=== PATIENT | male | born 1975 | race Caucasian/White ===

== ENCOUNTER 2016-07-26 07:20 | Emergency (ER) | payer MEDICAID ==
--- NOTE | 2016-07-26 08:07 | ER Document Report ---
ED Extremity Problem, Upper - General Chief Complaint: Elbow Injury Stated Complaint: ELBOW PAIN Time seen by provider: 08:07 Mode of Arrival: Ambulatory Information source: Patient TRAVEL OUTSIDE OF THE [place] IN LAST 30 DAYS: No - HPI Notes: Patient presents with report of bilateral elbow pain that he's had progressively over the last few weeks. 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 He is right hand dominant and reports the pain is through the medial epicondyle region of the right elbow and the lateral epicondyle region of the left elbow corresponding to the ways holding the patient scraper. He denies any numbness, paresthesia, fever, gout history, single episode of trauma. - Related Data Allergies/Adverse Reactions: hydromorphone HCl [From Dilaudid] Allergy (Severe, Verified 07/26/16 07:31) Sulfa (Sulfonamide Antibiotics) Allergy (Verified 07/26/16 07:31) Past Medical History - Social History Smoking Status: Unknown if Ever Smoked Chew tobacco use (# tins/day): No Frequency of alcohol use: None Drug Abuse: None Family History: Malignancy Patient has suicidal ideation: No Patient has homicidal ideation: No Pulmonary Medical History: Denies: Hx Tuberculosis Renal/ Medical History: Denies: Hx Peritoneal Dialysis Traumatic Medical History: Reports: Hx Pneumothorax - Right side 2 Surgical Hx: Negative Past Surgical History: Reports: Other - Chest tube 2 - Immunizations Hx Diphtheria, Pertussis, Tetanus Vaccination: Yes Review of Systems - Review of Systems Notes: REVIEW OF SYSTEMS: CONSTITUTIONAL : Denies fever, chills, or sweats. Denies recent illness. EENT: Denies eye, ear, throat, or mouth pain or symptoms. Denies nasal or sinus congestion or discharge. Denies throat, tongue, or mouth swelling or difficulty swallowing. CARDIOVASCULAR: Denies chest pain. Denies palpitations or racing or irregular heart beat. Denies ankle edema. RESPIRATORY: Denies cough, cold, or chest congestion. Denies shortness of breath, difficulty breathing, or wheezing. GASTROINTESTINAL: Denies abdominal pain or distention. Denies nausea, vomiting , or diarrhea. Denies blood in vomitus, stools, or per rectum. Denies black, tarry stools. Denies constipation. GENITOURINARY: Denies difficulty urinating, painful urination, burning, frequency, blood in urine, or discharge. MUSCULOSKELETAL: Denies back or neck pain or stiffness. Isolated pain through both elbows. SKIN: Denies rash, lesions or sores. HEMATOLOGIC : Denies easy bruising or bleeding. LYMPHATIC: Denies swollen, enlarged glands. NEUROLOGICAL: Denies confusion or altered mental status. Denies passing out or loss of consciousness. Denies dizziness or lightheadedness. Denies headache. Denies weakness or paralysis or loss of use of either side. Denies problems with gait or speech. Denies sensory loss, numbness, or tingling. Denies seizures. PSYCHIATRIC: Denies anxiety or stress. Denies depression, suicidal ideation, or homicidal ideation. ALL OTHER SYSTEMS REVIEWED AND NEGATIVE. Dictation was performed using [employer] voice recognition software -: Yes All other systems reviewed and negative Physical Exam - Vital signs Vitals: Temp Pulse Resp BP Pulse Ox 98.6 F 77 14 123/82 97 07/26/16 07:31 07/26/16 07:31 07/26/16 07:31 07/26/16 07:31 07/26/16 07:31 - Notes Notes: PHYSICAL EXAMINATION: GENERAL: Well-appearing, well-nourished and in no acute distress. HEAD: Atraumatic, normocephalic. EYES: conjunctiva are normal. NECK: Normal range of motion, supple without lymphadenopathy LUNGS: Breath sounds clear to auscultation bilaterally and equal. No wheezes rales or rhonchi. HEART: Regular rate and rhythm without murmurs Musculoskeletal: Normal range of motion, no pitting or edema. No cyanosis. Patient has pain to the right epicondyle of the elbow medially and the left lateral epicondyle. There is no erythema or significant swelling but there is pain on right forearm flexion and left forearm extension through these regions. Distally patient is neurovascularly intact. NEUROLOGICAL: Cranial nerves grossly intact. Normal speech, normal gait. Normal sensory, motor exams PSYCH: Normal mood, normal affect. SKIN: Warm, Dry, normal turgor, no rashes or lesions noted. Course - Re-evaluation Re-evalutation: 07/26/16 08:32 I demonstrated the patient the use of a epicondyle compression strap from both the medial and the lateral epicondyle. I informed him of where to find these and was able to demonstrate with an example used. He stated he would pick this up on his own. No suggestion for gout, neurovascular compromise or suggestion for fracture, obvious stress fracture or DVT. Orthopedic follow-up urged for any continued discomfort. - Vital Signs Vital signs: Temp Pulse Resp BP Pulse Ox 98.6 F 77 16 123/82 97 07/26/16 07:31 07/26/16 07:31 07/26/16 07:39 07/26/16 07:31 07/26/16 07:31 Discharge - Discharge Clinical Impression: Medial epicondylitis of right elbow, Lateral epicondylitis, left elbow Condition: Stable Disposition: HOME, SELF-CARE Instructions: Medial Epicondylitis ([facility]), Tennis Elbow (Lateral Epicondylitis) ([facility]) Additional Instructions: Please follow up with the Orthopedics [facility] [address] [place] [id number] Wear compression brace on both elbows as needed for pain. Prescriptions: Tramadol HCl [Ultram 50 mg Tablet] 50 mg PO Q4HP PRN #20 tablet PRN Reason: Naproxen [Naprosyn 375 Mg Tablet] 375 mg PO BIDP PRN #60 tablet PRN Reason: Forms: Return to Work
[2016-07-26 08:50] VITALS: BP 129/86
== END 2016-07-26 08:50 | disposition home or self-care (01) ==
LOC: ER 07:20
DX: M77.01 Medial epicondylitis, right elbow (principal); M77.12 Lateral epicondylitis, left elbow; Z88.6 Allergy status to analgesic agent; Z88.2 Allergy status to sulfonamides
CPT/HCPCS: 99283

== ENCOUNTER 2016-10-13 10:15 | Emergency (ER) | payer MEDICAID ==
--- NOTE | 2016-10-13 11:00 | ER Document Report ---
HPI - HPI Pain Level: 4 Context: 41 yo male c/o pain to both elbows progressively worsening over several months. pt seen 07/30 for same, diagnosed with tennis elbow. treated with naprosyn and ultram. pt reports pain has increased significantly since starting [email or web address] job. pt is right hand dominant. denies numbness, parethesias, fever, hx of gout, or trauma Associated Symptoms: None Exacerbated by: Movement Relieved by: Denies Similar symptoms previously: Yes Recently seen / treated by doctor: No - ROS Systems Reviewed and Negative: Yes All other systems reviewed and negative - REPRODUCTIVE Reproductive: DENIES: : - DERM Skin Color: Normal Past Medical History - General Information source: Patient - Social History Smoking Status: Current Every Day Smoker Frequency of alcohol use: None Drug Abuse: None Occupation: [employer] Lives with: Family Family History: Malignancy Patient has suicidal ideation: No Patient has homicidal ideation: No Pulmonary Medical History: Denies: Hx Tuberculosis Renal/ Medical History: Denies: Hx Peritoneal Dialysis Traumatic Medical History: Reports: Hx Pneumothorax - Right side 2 Past Surgical History: Reports: Other - Chest tube 2 - Immunizations Hx Diphtheria, Pertussis, Tetanus Vaccination: Yes Vertical Provider Document - CONSTITUTIONAL Agree With Documented VS: Yes Exam Limitations: No Limitations General Appearance: WD/WN - INFECTION CONTROL TRAVEL OUTSIDE OF THE [place] IN LAST 30 DAYS: No - HEENT HEENT: Atraumatic, PERRLA - NECK Neck: Normal Inspection, Supple - RESPIRATORY Respiratory: Breath Sounds Normal, No Respiratory Distress O2 Sat by Pulse Oximetry: 98 - CARDIOVASCULAR Cardiovascular: Regular Rate, Regular Rhythm - MUSCULOSKELETAL/EXTREMETIES Musculoskeletal/Extremeties: Tender - focal tenderness to right and left medial epicondyles. no erythema or swelling. + pain with flexion and extension. distal SMC intact Course - Re-evaluation Re-evalutation: 10/13/16 11:10 H&P c/w epicondylitis. no hx/o trauma, no suspicion for gout or DVT. emphasized to patient that he needs orthopedic follow up. acknowledges understanding. pt stable for discharge - Vital Signs Vital signs: Temp Pulse Resp BP Pulse Ox 97.8 F 60 16 120/82 98 10/13/16 10:19 10/13/16 10:19 10/13/16 10:19 10/13/16 10:19 10/13/16 10:19 Discharge - Discharge Clinical Impression: Tennis elbow syndrome Qualifiers: Laterality: bilateral Qualified Code(s): M77.11 - Lateral epicondylitis, right elbow Condition: Stable Disposition: HOME, SELF-CARE Instructions: Tennis Elbow (Lateral Epicondylitis) ([facility]), Steroid Medication, Ultram ([facility]) Additional Instructions: take meds as prescribed recommend counter traction brace for support and comfort recommend further evaluation and treatment by orthopedics Prescriptions: Prednisone 20 mg PO BID #20 tablet Tramadol HCl [Ultram 50 mg Tablet] 50 mg PO Q4H PRN #20 tablet PRN Reason: Referrals: BARTOLO DANIELS MD [ACTIVE STAFF] - Follow up as needed
[2016-10-13 11:27] VITALS: BP 117/77
== END 2016-10-13 11:27 | disposition home or self-care (01) ==
LOC: ER 10:15
DX: M77.12 Lateral epicondylitis, left elbow (principal); M77.11 Lateral epicondylitis, right elbow; F17.200 Nicotine dependence, unspecified, uncomplicated
CPT/HCPCS: 99283

== ENCOUNTER 2016-11-01 02:16 | Emergency (ER) | payer MEDICAID ==
--- NOTE | 2016-11-01 06:27 | RADIOLOGY REPORT (SQ) ---
EXAM DESCRIPTION: CHEST PA/LAT COMPLETED DATE/TIME: 11/01/2016 6:11 am REASON FOR STUDY: difficulty breathing COMPARISON: 08/02/2014. EXAM PARAMETERS: NUMBER OF VIEWS: two views TECHNIQUE: Digital Frontal and Lateral radiographic views of the chest acquired. RADIATION DOSE: NA LIMITATIONS: none FINDINGS: LUNGS AND PLEURA: No opacities, masses or pneumothorax. No pleural effusion. MEDIASTINUM AND HILAR STRUCTURES: No masses or contour abnormalities. HEART AND VASCULAR STRUCTURES: Heart normal size. No evidence for failure. BONES: No acute findings. HARDWARE: None in the chest. OTHER: No other significant finding. IMPRESSION: NO SIGNIFICANT RADIOGRAPHIC FINDING IN THE CHEST. TECHNICAL DOCUMENTATION: JOB ID: [id number] [employer]- All Rights Reserved
[2016-11-01] MEDS ORDERED: KETOROLAC TROMETHAMINE 60 MG/2 ML SDV IM ONE (06:36)
[2016-11-01] MEDS ORDERED: DIAZEPAM 5 MG TABLET PO ONE (06:36)
--- NOTE | 2016-11-01 07:30 | ER Document Report ---
ED General - General Chief Complaint: Breathing Difficulty Stated Complaint: BACK PAIN,SHORTNESS OF BREATH Time Seen by Provider: 11/01/16 06:12 Mode of Arrival: Ambulatory Information source: Patient Notes: 41-year-old male history of previous pneumothorax x2 secondary to height presents with complaints of midline thoracic back pain. pt notes pain started this morning hurts with movement and palpation. TRAVEL OUTSIDE OF THE [place] IN LAST 30 DAYS: No - HPI Onset: Just prior to arrival Onset/Duration: Persistent Quality of pain: Achy Severity: Mild Pain Level: 1 Associated symptoms: Body/muscle aches Exacerbated by: Movement Relieved by: Denies Similar symptoms previously: Yes Recently seen / treated by doctor: Yes - Related Data Allergies/Adverse Reactions: hydromorphone HCl [From Dilaudid] Allergy (Severe, Verified 11/01/16 05:55) Sulfa (Sulfonamide Antibiotics) Allergy (Verified 11/01/16 05:55) Past Medical History - Social History Smoking Status: Never Smoker Cigarette use (# per day): No Chew tobacco use (# tins/day): No Smoking Education Provided: No Family History: Malignancy Pulmonary Medical History: Denies: Hx Tuberculosis Renal/ Medical History: Denies: Hx Peritoneal Dialysis Traumatic Medical History: Reports: Hx Pneumothorax - Right side 2 Past Surgical History: Reports: Other - Chest tube 2 - Immunizations Hx Diphtheria, Pertussis, Tetanus Vaccination: Yes Review of Systems - Review of Systems Notes: REVIEW OF SYSTEMS: CONSTITUTIONAL : Denies fever, chills, or sweats. Denies recent illness. EENT: Denies eye, ear, throat, or mouth pain or symptoms. Denies nasal or sinus congestion or discharge. Denies throat, tongue, or mouth swelling or difficulty swallowing. CARDIOVASCULAR: Denies chest pain. Denies palpitations or racing or irregular heart beat. Denies ankle edema. RESPIRATORY: Denies cough, cold, or chest congestion. Denies shortness of breath, difficulty breathing, or wheezing. GASTROINTESTINAL: Denies abdominal pain or distention. Denies nausea, vomiting , or diarrhea. Denies blood in vomitus, stools, or per rectum. Denies black, tarry stools. Denies constipation. GENITOURINARY: Denies difficulty urinating, painful urination, burning, frequency, blood in urine, or discharge. MUSCULOSKELETAL: Admits to back pain SKIN: Denies rash, lesions or sores. HEMATOLOGIC : Denies easy bruising or bleeding. LYMPHATIC: Denies swollen, enlarged glands. NEUROLOGICAL: Denies confusion or altered mental status. Denies passing out or loss of consciousness. Denies dizziness or lightheadedness. Denies headache. Denies weakness or paralysis or loss of use of either side. Denies problems with gait or speech. Denies sensory loss, numbness, or tingling. Denies seizures. PSYCHIATRIC: Denies anxiety or stress. Denies depression, suicidal ideation, or homicidal ideation. ALL OTHER SYSTEMS REVIEWED AND NEGATIVE. Dictation was performed using [employer] voice recognition software PHYSICAL EXAMINATION: GENERAL: Well-appearing, well-nourished and in no acute distress. HEAD: Atraumatic, normocephalic. EYES: Pupils equal round and reactive to light, extraocular movements intact, sclera anicteric, conjunctiva are normal. ENT: Nares patent, oropharynx clear without exudates. Moist mucous membranes. NECK: Normal range of motion, supple without lymphadenopathy LUNGS: Breath sounds clear to auscultation bilaterally and equal. No wheezes rales or rhonchi. HEART: Regular rate and rhythm without murmurs ABDOMEN: Soft, nontender, nondistended abdomen. No guarding, no rebound. No masses appreciated. Musculoskeletal: Thoracic T four tenderness on palpation reproducing exact pain NEUROLOGICAL: Cranial nerves grossly intact. Normal speech, normal gait. Normal sensory, motor exams PSYCH: Normal mood, normal affect. SKIN: Warm, Dry, normal turgor, no rashes or lesions noted. Physical Exam - Vital signs Vitals: Temp Pulse Resp BP Pulse Ox 97.9 F 78 18 133/86 H 95 11/01/16 02:26 11/01/16 02:26 11/01/16 02:26 11/01/16 02:26 11/01/16 02:26 Course - Re-evaluation Re-evalutation: 11/01/16 14:14 Initial emergent concern was for another spontaneous pneumothorax, patient notes this feels a little different, a chest x-ray was performed which noted no mediastinal enlargement, it noted no pneumothorax. Patient's pain was exactly reproducible on palpation of his back, he has obvious muscle spasm and will be treated for such After performing a Medical Screening Examination, I estimate there is LOW risk for RUPTURED ESOPHAGUS, PNEUMOTHORAX, PULMONARY EMBOLISM, ACUTE CORONARY SYNDROME, OR THORACIC AORTIC DISSECTION, thus I consider the discharge disposition reasonable. I have reevaluated this patient multiple times and no significant life threatening changes are noted. The patient and I have discussed the diagnosis and risks, and we agree with discharging home with close follow-up. We also discussed returning to the Emergency Department immediately if new or worsening symptoms occur. We have discussed the symptoms which are most concerning (e.g., bloody sputum, worsening pain or shortness of breath) that necessitate immediate return. - Vital Signs Vital signs: Temp Pulse Resp BP Pulse Ox 97.9 F 56 L 12 131/79 H 99 11/01/16 07:43 11/01/16 07:43 11/01/16 05:47 11/01/16 07:43 11/01/16 07:43 - Diagnostic Test Radiology reviewed: Image reviewed, Reports reviewed - No acute abnormality - EKG Interpretation by Me EKG shows normal: Sinus rhythm, [place], Intervals, QRS Complexes Discharge - Discharge Clinical Impression: Muscle spasm Back pain Qualifiers: Back pain location: thoracic back pain Chronicity: acute Back pain laterality: midline Qualified Code(s): M54.6 - Pain in thoracic spine Condition: Stable Disposition: HOME, SELF-CARE Instructions: Muscle Strain ([facility]), Myalagia (Muscle Pain) ([facility]) Additional Instructions: Follow up with your physician tomorrow for further care or return to the ED IMMEDIATELY if symptoms worsen or new concerns occur. If you cannot afford to follow up with your primary care physician a list of low cost clinics have been provided at the end of your discharge papers as well. Prescriptions: Diazepam [Valium 5 mg Tablet] 5 mg PO QIDP PRN #15 tablet PRN Reason: Naproxen 500 mg PO BID #20 tablet
[2016-11-01 07:59] VITALS: BP 131/79
--- NOTE | 2016-11-01 10:23 | EKG REPORT ---
SEVERITY:- ABNORMAL ECG - SINUS BRADYCARDIA ANTERIOR INFARCT, AGE INDETERMINATE VERSUS LEAD PLACEMENT. : Confirmed by: Marika Calderon MD 01-Nov-2016 10:22:05
== END 2016-11-01 07:50 | disposition home or self-care (01) ==
LOC: ER 02:16
DX: M62.830 Muscle spasm of back (principal); R06.02 Shortness of breath; M54.9 Dorsalgia, unspecified; M54.6 Pain in thoracic spine
CPT/HCPCS: 93005; 99285; 96372; 71020; 93010; J3490; J1885

== ENCOUNTER 2017-09-29 09:51 | Emergency (ER) | payer MEDICAID ==
[2017-09-29] MEDS ORDERED: CEPHALEXIN 500 MG CAPSULE PO ONE (10:58)
[2017-09-29 11:03] VITALS: BP 129/80
--- NOTE | 2017-09-29 11:03 | ER Document Report ---
ED Extremity Problem, Lower - General Chief Complaint: Toe Injury Stated Complaint: TOE PAIN Time Seen by Provider: 09/29/17 10:51 Mode of Arrival: Ambulatory Information source: Patient Notes: 42-year-old male presents to ED for complaint of pain to the right great toe for times a week. He states it is red and swollen. He states he has not been to the doctor he has been trying to treat it himself but it is not getting any better. Patient is alert and oriented respirations even and unlabored pupils equal and react to light walks with a even steady gait. He does have some pain when he walks he states. TRAVEL OUTSIDE OF THE [place] IN LAST 30 DAYS: No - HPI Patient complains to provider of: Pain, Swelling Location: Great Toe Onset/Duration: Gradual Quality of pain: Sharp Severity: Moderate Pain Level: 3 Recent injury: No Associated symptoms: Painful ambulation Exacerbated by: Movement, Walking Relieved by: Elevation, Other - Warm - Related Data Allergies/Adverse Reactions: hydromorphone HCl [From Dilaudid] Allergy (Severe, Verified 09/29/17 09:53) Sulfa (Sulfonamide Antibiotics) Allergy (Verified 09/29/17 09:53) Past Medical History - General Information source: Patient - Social History Smoking Status: Former Smoker Cigarette use (# per day): No Chew tobacco use (# tins/day): No Smoking Education Provided: No Frequency of alcohol use: None Drug Abuse: None Lives with: Family Family History: Reviewed & Not Pertinent, DM - mother, Malignancy Patient has suicidal ideation: No Patient has homicidal ideation: No - Past Medical History Cardiac Medical History: Reports: None Pulmonary Medical History: Reports: None EENT Medical History: Reports: None Neurological Medical History: Reports: None Endocrine Medical History: Reports: None Renal/ Medical History: Reports: None Malignancy Medical History: Reports None GI Medical History: Reports: None Musculoskeltal Medical History: Reports None Skin Medical History: Reports None Psychiatric Medical History: Reports: None Traumatic Medical History: Reports: Hx Pneumothorax - Right side 2 Infectious Medical History: Reports: None Past Surgical History: Reports: Other - Chest tube 2, right elbow - Immunizations Immunizations up to date: No Hx Diphtheria, Pertussis, Tetanus Vaccination: No Review of Systems - Review of Systems Constitutional: No symptoms reported EENT: No symptoms reported Cardiovascular: No symptoms reported Respiratory: No symptoms reported Gastrointestinal: No symptoms reported Genitourinary: No symptoms reported Male Genitourinary: No symptoms reported Musculoskeletal: No symptoms reported Skin: Other - Mild inflammation to the right great toe to the medial aspect of the nail Hematologic/Lymphatic: No symptoms reported Neurological/Psychological: No symptoms reported -: Yes All other systems reviewed and negative Physical Exam - Vital signs Vitals: Temp Pulse Resp BP Pulse Ox 98.0 F 80 16 129/80 H 96 09/29/17 10:05 09/29/17 10:05 09/29/17 10:05 09/29/17 10:05 09/29/17 10:05 Interpretation: Normal - General General appearance: Appears well, Alert - HEENT Head: Normocephalic, Atraumatic Eyes: Normal Pupils: PERRL - Respiratory Respiratory status: No respiratory distress Chest status: Nontender Breath sounds: Normal Chest palpation: Normal - Cardiovascular Rhythm: Regular Heart sounds: Normal auscultation Murmur: No - Abdominal Inspection: Normal Distension: No distension Bowel sounds: Normal Tenderness: Nontender Organomegaly: No organomegaly - Back Back: Normal, Nontender - Extremities General upper extremity: Normal inspection, Nontender, Normal color, Normal ROM , Normal temperature General lower extremity: Normal ROM, Normal temperature, Normal weight bearing. No: Christopher's sign Foot: Tender - Right great toe to the medial aspect of the nail, Edema - Right great toe to the medial aspect of the nail, Other - Erythema Right great toe to the medial aspect of the nail - Neurological Neuro grossly intact: Yes Cognition: Normal Orientation: AAOx4 [place] Coma Scale Eye Opening: Spontaneous [place] Coma Scale Verbal: Oriented [place] Coma Scale Motor: Obeys Commands [place] Coma Scale Total: 15 Speech: Normal Motor strength normal: LUE, RUE, LLE, RLE Sensory: Normal - Psychological Associated symptoms: Normal affect, Normal mood - Skin Skin Temperature: Warm Skin Moisture: Dry Skin Color: Normal Irregularity with: Swelling, Tenderness, Warmth - Right great toe to the medial aspect of the nail Course - Re-evaluation Re-evalutation: 09/29/17 11:08 Patient was given Keflex for his right great toe infection to the medial side of the nail. Patient was instructed to use Epson salt soaks for the next 3-4 days and then to follow-up with podiatry on Tuesday he is to call podiatry today to schedule an appointment. Patient verbalized understanding and agreement with treatment plan. - Vital Signs Vital signs: Temp Pulse Resp BP Pulse Ox 98.0 F 80 16 129/80 H 96 09/29/17 10:05 09/29/17 10:05 09/29/17 10:05 09/29/17 10:05 09/29/17 10:05 Discharge - Discharge Clinical Impression: Ingrown toenail of right foot with infection Condition: Stable Disposition: HOME, SELF-CARE Additional Instructions: Ingrown Nail You have an ingrown nail. An ingrown nail develops when the tissues near the nail are pushed up over the nail. Irritation develops and infection follows. An ingrown nail can result from poorly fitting shoes, improper cutting of the nail, or minor injuries. Once the tissues at the edge of the nail swell, the problem can become chronic. Emergency treatment is usually removal of the portion of the nail that has become ingrown. This is followed by hot soaks three to four times a day. Antibiotics may be necessary if infection is present. After the toe heals, make certain there is no pressure on the area, either from shoes or another toe. Trim the toenails straight across, not curved back into the corners. If ingrown nails recur, an operation to remove excess tissue near the nail, or narrowing of the nail, may be necessary. Call the doctor or return if swelling increases, or red streaks, swelling, or swollen glands are found. CEPHALEXIN: The antibiotic you've been prescribed is a member of the cephalosporin class. This type of antibiotic covers a wide variety of infections, including those of the skin, lungs, and urinary tract. It's useful for staph infections. This antibiotic is slightly similar to the penicillin family. In rare cases , a person who is allergic to penicillin will also be allergic to this medication. If you have had a severe allergic reaction to penicillin, and have not taken this antibiotic since that time, notify your doctor. Antibiotics which cover many germs ("broad spectrum" antibiotics) are more likely to cause diarrhea or "yeast" infections. Women prone to vaginal yeast problems may suffer an attack after taking this antibiotic. In infants, oral thrush (white spots "stuck" on the cheek) or yeast diaper rash may result. See your doctor if these problems occur. Call at once if you develop itching, hives , shortness of breath, or lightheadedness. Epsom Salt Soaks Soak the wound area in a container of warm epsom salt water. If you can't get the wound area into a bucket or smith, use a folded towel soaked in the epsom salt solution and apply to the area. Use clean hot tap water (about the temperature of a very warm bath), mixing in about one (1) teaspoon for every pint of water. Two gallon --> 16 teaspoons Epsom Salts One gallon --> 8 teaspoons Epsom Salts Two quarts --> 4 teaspoons Epsom Salts One quart --> 2 teaspoons Epsom Salts Soak the wound for about 20 minutes while gently moving it around in the water. Repeat this four (4) times a day. FOLLOW-UP CARE: If you have been referred to a physician for follow-up care, call the physician s office for an appointment as you were instructed or within the next two days. If you experience worsening or a significant change in your symptoms, notify the physician immediately or return to the Emergency Department at any time for re-evaluation. Prescriptions: Cephalexin Monohydrate [Keflex 500 mg Capsule] 500 mg PO Q6H 5 Days capsule Forms: Elevated Blood Pressure Referrals: JALEESA PALACIO DPM [ACTIVE STAFF] - Follow up as needed
== END 2017-09-29 11:20 | disposition home or self-care (01) ==
LOC: ER 09:51
DX: L60.0 Ingrowing nail (principal); L03.031 Cellulitis of right toe; M79.674 Pain in right toe(s); Z88.5 Allergy status to narcotic agent; Z88.2 Allergy status to sulfonamides; Z87.891 Personal history of nicotine dependence
CPT/HCPCS: 99283

== ENCOUNTER 2017-12-05 22:57 | Emergency (ER) | payer SELFPAY ==
[2017-12-06] MEDS ORDERED: CYCLOBENZAPRINE HCL 10 MG TABLET PO ONE (01:19)
[2017-12-06] MEDS ORDERED: IBUPROFEN 600 MG TABLET PO ONE (01:19)
--- NOTE | 2017-12-06 02:15 | ER Document Report ---
ED Neck/Back Problem - General Mode of Arrival: Ambulatory Information source: Patient TRAVEL OUTSIDE OF THE [place] IN LAST 30 DAYS: No - General Chief Complaint: Low Back Pain Stated Complaint: BACK PAIN Time Seen by Provider: 12/06/17 00:57 Notes: Patient is a 42-year-old male who presents to the ER today for low back pain that began approximately a week ago. 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 He states that it feels like his back "locks up" on him. He denies any numbness or tingling or shooting pains anywhere. Patient does not have a history of chronic back pain. Patient states that he feels "crooked." (MARILY MANNING) - Related Data Allergies/Adverse Reactions: hydromorphone HCl [From Dilaudid] Allergy (Severe, Verified 12/06/17 01:08) Sulfa (Sulfonamide Antibiotics) Allergy (Verified 12/06/17 01:08) Past Medical History - General Information source: Patient - Social History Smoking Status: Unknown if Ever Smoked Family History: Reviewed & Not Pertinent, DM - mother, Malignancy Patient has suicidal ideation: No Patient has homicidal ideation: No Pulmonary Medical History: Denies: Hx Tuberculosis Renal/ Medical History: Denies: Hx Peritoneal Dialysis Psychiatric Medical History: Denies: Hx Depression Traumatic Medical History: Reports: Hx Pneumothorax - Right side 2 Past Surgical History: Reports: Other - Chest tube 2, right elbow - Immunizations Immunizations up to date: No Hx Diphtheria, Pertussis, Tetanus Vaccination: No Review of Systems - Review of Systems Constitutional: No symptoms reported EENT: No symptoms reported Cardiovascular: No symptoms reported Respiratory: No symptoms reported Gastrointestinal: No symptoms reported Genitourinary: No symptoms reported Male Genitourinary: No symptoms reported Musculoskeletal: See HPI Skin: No symptoms reported Hematologic/Lymphatic: No symptoms reported Neurological/Psychological: No symptoms reported Physical Exam - Vital signs Vitals: Temp Pulse Resp BP Pulse Ox 99.2 F 77 16 124/76 96 12/05/17 23:47 12/05/17 23:47 12/05/17 23:47 12/05/17 23:47 12/05/17 23:47 - Notes Notes: PHYSICAL EXAMINATION: GENERAL: Uncomfortable ll-appearing and in no acute distress. HEAD: Atraumatic, normocephalic. EYES: Pupils equal round and reactive to light, extraocular movements intact, sclera anicteric, conjunctiva are normal. NECK: Normal range of motion, supple without lymphadenopathy LUNGS: CTAB and equal. No wheezes rales or rhonchi. HEART: Regular rate and rhythm without murmurs BACK: no vertebral tenderness, normal ROM GI/: no CVA tenderness EXTREMITIES: Normal range of motion, no pitting edema. No cyanosis. NEUROLOGICAL: Cranial nerves grossly intact. Normal sensory/motor exams. PSYCH: Normal mood, normal affect. SKIN: Warm, Dry, normal turgor, no rashes or lesions noted (MARILY MANNING) Course - Re-evaluation Re-evalutation: L-spine x-ray negative for any acute findings, patient being discharged, discharge instructions are prepared by provider who saw the patient. (COY CONWAY) - Vital Signs Vital signs: Temp Pulse Resp BP Pulse Ox 97.8 F 60 16 129/76 H 97 12/06/17 03:05 12/06/17 03:05 12/06/17 03:05 12/06/17 03:05 12/06/17 03:05 Discharge - Discharge Clinical Impression: Low back pain Condition: Stable Disposition: HOME, SELF-CARE Instructions: Ice Packs ([facility]), Low Back Pain ([facility]), Muscle Strain ([facility]), Warm Packs ([facility]) Additional Instructions: Return immediately for any new or worsening symptoms. Follow up with primary care provider, call tomorrow to make followup appointment. Prescriptions: Cyclobenzaprine HCl [Flexeril 10 mg Tablet] 10 mg PO TIDP PRN #15 tab PRN Reason: Ibuprofen [Motrin 800 mg Tablet] 800 mg PO Q8H PRN #30 tab PRN Reason: Forms: Return to Work
--- NOTE | 2017-12-06 02:52 | RADIOLOGY REPORT (SQ) ---
EXAM DESCRIPTION: Lumbar spine radiographs , AP, lateral, and bilateral oblique views December 06, 2017 CLINICAL HISTORY: 42 years, Male, low back pain COMPARISON: None. FINDINGS: There are 5 lumbar type vertebral bodies in normal anatomic alignment. There is no evidence of acute fracture or dislocation. There are no significant degenerative changes. Limited evaluation of the ribs and bony pelvis demonstrate no gross abnormalities. The soft tissue structures of the abdomen and pelvis are grossly normal. IMPRESSION: No acute fracture or dislocation of the lumbar spine.
[2017-12-06 05:35] VITALS: BP 129/76
== END 2017-12-06 03:12 | disposition home or self-care (01) ==
LOC: ER 22:57
DX: M54.5 Low back pain (principal); Z88.5 Allergy status to narcotic agent; Z88.2 Allergy status to sulfonamides
CPT/HCPCS: 72110; 99283

== ENCOUNTER 2019-07-23 08:04 | Emergency (ER) | payer SELFPAY ==
[2019-07-23 08:11] VITALS: BP 136/89
[2019-07-23 09:22] LABS: A TYPE INFLUENZA AG NEGATIVE (NEGATIVE); B INFLUENZA AG NEGATIVE (NEGATIVE)
--- NOTE | 2019-07-23 09:35 | RADIOLOGY REPORT (SQ) ---
EXAM DESCRIPTION: CHEST 2 VIEWS COMPLETED DATE/TIME: 07/23/2019 9:26 am REASON FOR STUDY: cough, rib pain COMPARISON: 11/01/2016, 08/02/2014 EXAM PARAMETERS: NUMBER OF VIEWS: two views TECHNIQUE: Digital Frontal and Lateral radiographic views of the chest acquired. RADIATION DOSE: NA LIMITATIONS: none FINDINGS: LUNGS AND PLEURA: No opacities, masses or pneumothorax. No pleural effusion. MEDIASTINUM AND HILAR STRUCTURES: No masses or contour abnormalities. HEART AND VASCULAR STRUCTURES: Heart normal size. No evidence for failure. BONES: No acute findings. HARDWARE: None in the chest. OTHER: No other significant finding. IMPRESSION: NO ACUTE RADIOGRAPHIC FINDING IN THE CHEST. TECHNICAL DOCUMENTATION: JOB ID: [id number] 2010 [employer]- All Rights Reserved Reading location - IP/workstation name: [email or web address]
--- NOTE | 2019-07-23 09:59 | ER Document Report ---
HPI - HPI Patient complains to provider of: Symptoms Time Seen by Provider: 07/23/19 08:45 Onset/Duration: Persistent Pain Level: Denies Context: Patient presents with cough, congestion sore throat. Patient complains of pain with deep inspiration. Patient denies any fever nausea vomiting or diarrhea. Patient is concerned about possible coronavirus or influenza virus. Patient denies any recent travel or known exposure to anyone at high risk of coronavirus. Associated Symptoms: Headache, Rhinnorhea, Sore throat Exacerbated by: Denies Relieved by: Denies Similar symptoms previously: Yes Recently seen / treated by doctor: No - CONSTITUTIONAL Constitutional: REPORTS: Chills. DENIES: Fever - EENT EENT: REPORTS: Sore Throat, Ear Pain - NEURO Neurology: REPORTS: Headache - CARDIOVASCULAR Cardiovascular: REPORTS: Chest pain - RESPIRATORY Respiratory: REPORTS: Trouble Breathing, Coughing - REPRODUCTIVE Reproductive: DENIES: : - DERM Skin Color: Normal Skin Problems: None Past Medical History - General Information source: Patient - Social History Smoking Status: Former Smoker Chew tobacco use (# tins/day): No Frequency of alcohol use: None Drug Abuse: None Occupation: tub/tile Family History: Reviewed & Not Pertinent, DM - mother, Malignancy Patient has suicidal ideation: No Patient has homicidal ideation: No - Medical History Medical History: Negative Pulmonary Medical History: Denies: Hx Tuberculosis Renal/ Medical History: Denies: Hx Peritoneal Dialysis Psychiatric Medical History: Denies: Hx Depression Traumatic Medical History: Reports: Hx Pneumothorax - Right side 2 Past Surgical History: Reports: Hx Appendectomy, Other - Chest tube 2, right elbow - Immunizations Immunizations up to date: No Hx Diphtheria, Pertussis, Tetanus Vaccination: No Vertical Provider Document - CONSTITUTIONAL Agree With Documented VS: Yes Exam Limitations: No Limitations General Appearance: WD/WN, No Apparent Distress - INFECTION CONTROL TRAVEL OUTSIDE OF THE [place] IN LAST 30 DAYS: No - HEENT HEENT: Atraumatic, Normocephalic, Pharyngeal Tenderness, Pharyngeal Erythema. negative: Pharyngeal Exudate, Tympanic Membrane Red, Tympanic Membrane Bulging Notes: Clear rhinorrhea - NECK Neck: Normal Inspection, Supple. negative: Lymphadenopathy-Left, Lymphadenopathy-Right - RESPIRATORY Respiratory: Breath Sounds Normal, No Respiratory Distress. negative: Chest Non-Tender - Left posterior thoracic rib pain with deep inspiration, Rales, Rhonchi, Wheezing - CARDIOVASCULAR Cardiovascular: Regular Rate, Regular Rhythm, No Murmur - GI/ABDOMEN Gastrointestinal: Abdomen Soft - BACK Back: Normal Inspection - MUSCULOSKELETAL/EXTREMETIES Musculoskeletal/Extremeties: MACY BABIN - NEURO Level of Consciousness: Awake, Alert, Appropriate Motor/Sensory: No Motor Deficit - DERM Integumentary: Warm, Dry, No Rash Course - Re-evaluation Re-evalutation: 07/23/19 09:58 Patient's respirations even unlabored, patient nontoxic in appearance. Chest x- ray reviewed. No concern for pneumonia or pneumothorax. Influenza test negative. - Vital Signs Vital signs: Temp Pulse Resp BP Pulse Ox 98.7 F 90 16 136/89 H 96 07/23/19 08:09 07/23/19 08:09 07/23/19 08:09 07/23/19 08:09 07/23/19 08:09 - Laboratory Laboratory results interpreted by me: 07/23/19 09:58 Labs- Entire Visit 07/23/19 07/23/19 08:45 08:57 Influenza A (Rapid) NEGATIVE Influenza B (Rapid) NEGATIVE Group A Strep Rapid NEGATIVE - Diagnostic Test Radiology reviewed: Reports reviewed Discharge - Discharge Clinical Impression: Upper respiratory infection Qualifiers: URI type: unspecified URI Qualified Code(s): J06.9 - Acute upper respiratory infection, unspecified Condition: Stable Disposition: HOME, SELF-CARE Instructions: Acetaminophen, Upper Respiratory Illness ([facility]) Additional Instructions: Return immediately for any new or worsening symptoms Followup with your primary care provider, call tomorrow to make a followup appointment Throat culture is pending, we will call if you need any different treatment Prescriptions: Naproxen [Naprosyn 250 Nmg Tablet] 1 tab PO BID #14 tablet Benzonatate [Tessalon Perles 100 mg Capsule] 100 mg PO ASDIR PRN #20 capsule PRN Reason: Forms: Return to Work Referrals: [facility] [Provider Group] - Follow up as needed [facility] [Provider Group] - Follow up as needed
== END 2019-07-23 10:06 | disposition home or self-care (01) ==
LOC: ER 08:04
DX: J06.9 Acute upper respiratory infection, unspecified (principal); J02.9 Acute pharyngitis, unspecified; R51 Headache; R07.9 Chest pain, unspecified
CPT/HCPCS: 71046; 87070; 87804; 87880; 99283